=== PATIENT | male | born 1935 | race Caucasian/White ===

== ENCOUNTER 2019-06-19 11:44 | Emergency (ER) | payer MEDICARE, BC ==
[~2019-06-19] VITALS: Ht 167.6 cm; Wt 103.9 kg
[2019-06-19 12:47] LABS: BASOPHILS % (AUTO) 0.6 % (0.0-2.0); EOSINOPHILS # (AUTO) 0.2 K/uL (0.0-0.7); EOSINOPHILS % (AUTO) 3.1 % (0.0-7.0); HEMATOCRIT 33.7 % (36.7-47.1); HEMOGLOBIN 11.4 g/dL (12.5-16.3); LYMPHOCYTES # (AUTO) 1.4 K/uL (20.0-40.0); LYMPHOCYTES % (AUTO) 25.6 % (20.5-51.5); MEAN CORPUSCULAR HEMOGLOBIN 35.1 uug (23.8-33.4); MEAN CORPUSCULAR HGB CONC 34 g/dL (32.5-36.3); MEAN CORPUSCULAR VOLUME 103.4 fL (73.0-96.2); MONOCYTES # (AUTO) 0.5 K/uL (2.0-10.0); NEUTROPHILS # (AUTO) 3.3 K/uL (1.8-8.9); NEUTROPHILS % (AUTO) 61.7 % (38.5-71.5); PLATELET COUNT (AUTO) 136 K/uL (152-348); RED BLOOD CELL COUNT(AUTO) 3.26 MIL/uL (4.06-5.63); WHITE BLOOD COUNT (AUTO) 5.3 K/uL (3.6-10.2)
[2019-06-19 12:52] LABS: ALANINE AMINOTRANSFERASE 18 U/L (16-63); ALKALINE PHOSPHATASE 97 U/L (50-136); ASPARTATE AMINOTRANSFERASE 19 U/L (15-37); BILIRUBIN,DIRECT 0.3 mg/dL (0.0-0.2); BILIRUBIN,TOTAL 0.9 mg/dL (0.2-1.0); CARBON DIOXIDE 28 mmol/L (21-32); CHLORIDE 102 mmol/L (98-107); CREATININE 1.6 mg/dL (0.6-1.3); GLUCOSE 84 mg/dL (74-106); POTASSIUM 4.2 mmol/L (3.5-5.1); TOTAL PROTEIN, SERUM 6.8 g/dL (6.4-8.2); UREA NITROGEN, BLOOD 33 mg/dL (7-18)
[2019-06-19 13:43] LABS: *BILIRUBIN,URIN NEGATIVE (NEGATIVE); *BLOOD, URINE NEGATIVE (NEGATIVE); *CLARITY,URINE CLEAR (CLEAR); *COLOR,URINE YELLOW (YELLOW); *KETONES,URINE NEGATIVE (NEGATIVE); LEUKOCYTE ESTERASE ,URINE NEGATIVE (NEGATIVE); NITRITE, URINE NEGATIVE (NEGATIVE); PH,URINE 5.5 (5.0-8.0); UGLUCOSE NEGATIVE (NEGATIVE)
--- NOTE | 2019-06-19 14:08 | NUR ---
Call placed to Dr. Borja (VASCULAR SURGERY), ERMD speaking with him at this time.
[2019-06-19] MEDS ORDERED: SWABABLE VALVE TRANSFER SET EA MC ONE (14:09)
[2019-06-19] MEDS ORDERED: IOHEXOL 350 100 ML INFUS..BTL ONE (14:09)
[2019-06-19] MEDS ORDERED: IV NORMAL SALINE 250 ML IV ONE (14:09)
[2019-06-19] MEDS ORDERED: IV NORMAL SALINE 500 ML BAG IV ONE (15:15)
--- NOTE | 2019-06-19 15:38 | NUR ---
Patient does not wish to proceed with medical care recommended by Dr. SCHMITZ ). Patient given information related to possible complications, up to and including , which could occur as a result of leaving the hospital at this time. Patient verbalizes understanding of risks involved due to leaving against medical advice. Patient has signed AMA form. Addendum: 06/19/19 at 1543 by JOHNNY PT DID NOT REQUEST ANY PAIN MED.
[2019-06-19 15:42] VITALS: BP 139/72
== END 2019-06-19 15:43 | disposition left against medical advice (07) ==
LOC: ER 11:44
DX: M54.5 Low back pain (principal); I71.4 Abdominal aortic aneurysm, without rupture; R78.5 Finding of other psychotropic drug in blood
CPT/HCPCS: 36415; 74174; 74176; 80048; 80076; 81001; 85025; 87086; 99284; Q9967; A4663; J7040; J7050

== ENCOUNTER 2019-10-14 15:45 | Inpatient (IN) | payer MEDICARE, BC ==
[~2019-10-14] VITALS: Ht 167.6 cm; Wt 115.8 kg
[2019-10-14] MEDS ORDERED: ATOR40TA PO (16:13)
[2019-10-14] MEDS ORDERED: ALLO300T2 PO (16:13)
[2019-10-14] MEDS ORDERED: RAMI10CA69 PO (16:13)
[2019-10-14] MEDS ORDERED: ONDANSETRON 4 MG/2 ML VIAL IV ONE (16:15)
[2019-10-14] MEDS ORDERED: MORPHINE SULFATE 2 MG/1 ML DISP.SYRIN IV ONE ×2 (16:15→18:15)
[2019-10-14 16:36] LABS: BASOPHILS % (AUTO) 0.6 % (0.0-2.0); EOSINOPHILS # (AUTO) 0.1 K/uL (0.0-0.7); EOSINOPHILS % (AUTO) 2.1 % (0.0-7.0); HEMATOCRIT 34.1 % (36.7-47.1); HEMOGLOBIN 11.4 g/dL (12.5-16.3); LYMPHOCYTES # (AUTO) 1.5 K/uL (20.0-40.0); LYMPHOCYTES % (AUTO) 23.8 % (20.5-51.5); MEAN CORPUSCULAR HEMOGLOBIN 33.9 uug (23.8-33.4); MEAN CORPUSCULAR HGB CONC 34 g/dL (32.5-36.3); MEAN CORPUSCULAR VOLUME 101.3 fL (73.0-96.2); MONOCYTES # (AUTO) 0.6 K/uL (2.0-10.0); MONOCYTES % (AUTO) 9.6 % (0.0-11.0); NEUTROPHILS # (AUTO) 3.9 K/uL (1.8-8.9); NEUTROPHILS % (AUTO) 63.9 % (38.5-71.5); PLATELET COUNT (AUTO) 133 K/uL (152-348); RED BLOOD CELL COUNT(AUTO) 3.36 MIL/uL (4.06-5.63); WHITE BLOOD COUNT (AUTO) 6.2 K/uL (3.6-10.2)
[2019-10-14 16:50] LABS: ALANINE AMINOTRANSFERASE 25 U/L (16-63); ALKALINE PHOSPHATASE 102 U/L (50-136); ASPARTATE AMINOTRANSFERASE 14 U/L (15-37); BILIRUBIN,DIRECT 0.2 mg/dL (0.0-0.2); BILIRUBIN,TOTAL 0.6 mg/dL (0.2-1.0); CARBON DIOXIDE 27 mmol/L (21-32); CHLORIDE 104 mmol/L (98-107); CREATININE 1.7 mg/dL (0.6-1.3); GLUCOSE 128 mg/dL (74-106); POTASSIUM 4.3 mmol/L (3.5-5.1); TOTAL PROTEIN, SERUM 6.5 g/dL (6.4-8.2); UREA NITROGEN, BLOOD 37 mg/dL (7-18)
[2019-10-14] MEDS ORDERED: MORPHINE SULFATE 2 MG/1 ML DISP.SYRIN ONE ×2 (16:54→18:15)
[2019-10-14] MEDS ORDERED: ONDANSETRON 4 MG/2 ML VIAL ONE (16:57)
[2019-10-14] MEDS ORDERED: MORPHINE SULFATE 4 MG/1 ML DISP.SYRIN ONE (17:43)
--- NOTE | 2019-10-14 17:44 | NUR ---
EPIC panel call requested, awaiting call back from [facility],
[2019-10-14] MEDS ORDERED: MORPHINE SULFATE 4 MG/1 ML DISP.SYRIN IV ONE (17:45)
--- NOTE | 2019-10-14 17:52 | NUR ---
Lit at bedside for evaluation.
--- NOTE | 2019-10-14 17:53 | NUR ---
Dr. Mon on the line with ERMD
[2019-10-14] MEDS ORDERED: ADJU0.5V IM (18:31)
[2019-10-14] MEDS ORDERED: CELE200C PO ×2 (18:32→18:38)
[2019-10-14] MEDS ORDERED: LIDOCAINE 2% (UROJET) 10 ML JELLY MM ONE ×2 (18:33→18:45)
[2019-10-14] MEDS ORDERED: PHEN-894 PO (18:38)
[2019-10-14] MEDS ORDERED: NITR0.4T48 SL (18:38)
[2019-10-14] MEDS ORDERED: HYDROCO/APAP PO (18:38)
[2019-10-14] MEDS ORDERED: DICL100G16 TP (18:38)
[2019-10-14] MEDS ORDERED: MAGNESIUM HYDROXIDE 30 ML LIQUID UDC PO PRN (19:00)
[2019-10-14] MEDS ORDERED: NITROGLYCERIN 0.4 MG/TAB BOTTLE SL PRN (19:00)
[2019-10-14] MEDS ORDERED: ACETAMINOPHEN 325 MG TABLET PO PRN (19:00)
[2019-10-14] MEDS ORDERED: ONDANSETRON 4 MG/2 ML VIAL IV PRN (19:00)
[2019-10-14] MEDS ORDERED: Z GUARD REMEDY PASTE 57 GM TUBE TOP PRN (19:00)
[2019-10-14] MEDS ORDERED: ZOLPIDEM 5 MG TABLET PO PRN (19:00)
--- NOTE | 2019-10-14 19:05 | NUR ---
ADMITTING NOTES PATIENT RECEIVED INTO CARE LAYING IN BED, RESTING COMFORTABLY. PATIENT HAS NO COMPLAINTS OF PAIN OR DISCOMFORT AT THIS TIME. ALL PERTINENT ASSESSMENTS COMPLETED. IV SITE ON LEFT HAND 20G IS PATENT AND INTACT. PATIENT HAS A HERNÁNDEZ WITH DARK YELLOW URINE DRAINING INTO HERNÁNDEZ BAG. ALL SAFETY AND FALL PRECAUTION MEASURES ARE IN PLACE. CALL LIGHT AND PERSONAL ITEMS ARE WITHIN REACH AT ALL TIMES. WILL CONTINUE TO MONITOR AND ASSESS.
--- NOTE | 2019-10-14 19:08 | NUR ---
Patient transported to [place] in stable condition.
--- NOTE | 2019-10-14 21:00 | NUR ---
Patient complaining of right wrist pain. Contacted Dr. Martinez to request right wrist/arm xray.
[2019-10-14] MEDS: IV D5 1/2 NS 1000 ML 1,000 ML IV PRN (21:15)
[2019-10-14] MEDS: HYDROCODONE/APAP 5-325MG TABLET PO PRN (21:51)
[2019-10-14 22:37] VITALS: BP 132/70
--- NOTE | 2019-10-14 23:55 | NUR ---
Received verbal report from Madeleine at [facility], possible nondisplaced fracture through the waist of the Scaphoid - correlation with CT advised. Relayed results to MD Martinez Will continue to monitor and assess.
[2019-10-15] MEDS: HYDROCODONE/APAP 5-325MG TABLET PO PRN ×2 (02:39→06:26)
[2019-10-15] MEDS: MORPHINE SULFATE 2 MG/1 ML DISP.SYRIN IV PRN ×2 (05:08→09:14)
[2019-10-15 05:34] VITALS: BP 189/85
[2019-10-15] MEDS: PANTOPRAZOLE SODIUM 40 MG TABLET.DR PO SCH (06:25)
[2019-10-15 06:46] LABS: BASOPHILS % (AUTO) 0.3 % (0.0-2.0); EOSINOPHILS # (AUTO) 0.1 K/uL (0.0-0.7); EOSINOPHILS % (AUTO) 1.9 % (0.0-7.0); HEMATOCRIT 29.2 % (36.7-47.1); HEMOGLOBIN 10.1 g/dL (12.5-16.3); LYMPHOCYTES # (AUTO) 0.9 K/uL (20.0-40.0); LYMPHOCYTES % (AUTO) 15.5 % (20.5-51.5); MEAN CORPUSCULAR HEMOGLOBIN 34.5 uug (23.8-33.4); MEAN CORPUSCULAR HGB CONC 35 g/dL (32.5-36.3); MEAN CORPUSCULAR VOLUME 99.9 fL (73.0-96.2); MONOCYTES # (AUTO) 0.7 K/uL (2.0-10.0); MONOCYTES % (AUTO) 11.2 % (0.0-11.0); NEUTROPHILS # (AUTO) 4.3 K/uL (1.8-8.9); NEUTROPHILS % (AUTO) 71.1 % (38.5-71.5); PLATELET COUNT (AUTO) 115 K/uL (152-348); RED BLOOD CELL COUNT(AUTO) 2.92 MIL/uL (4.06-5.63)
[2019-10-15 06:58] LABS: ALANINE AMINOTRANSFERASE 27 U/L (16-63); ALKALINE PHOSPHATASE 91 U/L (50-136); ASPARTATE AMINOTRANSFERASE 17 U/L (15-37); BILIRUBIN,TOTAL 0.9 mg/dL (0.2-1.0); CARBON DIOXIDE 31 mmol/L (21-32); CHLORIDE 102 mmol/L (98-107); CHOLESTEROL 123 mg/dL (<200); CREATININE 1.6 mg/dL (0.6-1.3); GLUCOSE 135 mg/dL (74-106); HDL CHOLESTEROL 41 mg/dL (40-60); MAGNESIUM 1.7 mg/dL (1.8-2.4); PHOSPHOROUS 3.8 mg/dL (2.5-4.9); TOTAL PROTEIN, SERUM 6.1 g/dL (6.4-8.2); TRIGLYCERIDES 87 MG/DL (30-150); UREA NITROGEN, BLOOD 29 mg/dL (7-18)
[2019-10-15 07:05] LABS: THYROID STIMULATING HORMONE 2.401 mIU/mL (0.358-3.740)
--- NOTE | 2019-10-15 07:35 | NUR ---
Received patient in bed, Awake and verbally responsive. No signs of distress noted. NO SOB. No complain of Pain at this time. Cohen Catheter draining with yellow urine, No Hematuria noted. No sediments noted. Call light within easy reach. Kept comfortable. Will continue to monitor.
[2019-10-15] MEDS ORDERED: MAGNESIUM SULFATE/D5W 100 ML IV SCH (08:15)
[2019-10-15] MEDS: ATORVASTATIN 40 MG TABLET PO SCH (08:46)
[2019-10-15] MEDS: ALLOPURINOL 300 MG TABLET PO SCH (08:46)
[2019-10-15] MEDS: RAMIPRIL 5 MG CAPSULE PO SCH (08:47)
[2019-10-15] MEDS: IV D5 1/2 NS 1000 ML 1,000 ML IV PRN (10:38)
[2019-10-15 11:00] VITALS: BP 110/69
[2019-10-15] MEDS: HYDROMORPHONE 1 MG/1 ML DISP.SYRIN IV PRN ×3 (11:11→19:42)
[2019-10-15 11:43] LABS: *BILIRUBIN,URIN NEGATIVE (NEGATIVE); *BLOOD, URINE 2+ (NEGATIVE); *CLARITY,URINE SLIGHTLY CLOUDY (CLEAR); *COLOR,URINE YELLOW (YELLOW); *KETONES,URINE NEGATIVE (NEGATIVE); LEUKOCYTE ESTERASE ,URINE NEGATIVE (NEGATIVE); NITRITE, URINE NEGATIVE (NEGATIVE); UGLUCOSE NEGATIVE (NEGATIVE)
[2019-10-15 12:41] LABS: BACTERIA,URINE FEW /HPF (NONE SEEN); SQUAMOUS EPITHELIAL CELL,UR FEW /HPF (NONE SEEN); WBC,URINE 0-3 /HPF (0-3)
[2019-10-15 15:02] VITALS: BP 111/71
[2019-10-15] MEDS: IV NS 1000 ML 1,000 ML IV PRN (15:11)
--- NOTE | 2019-10-15 16:06 | NUR ---
Patient will have a Intramedullary Nailing of right Hip on 10/16/[address] Nunez, Patient will be NPO After Midnight.
--- NOTE | 2019-10-15 18:23 | NUR ---
Patient in bed, awake and verbally responsive. NO signs of distress noted. No SOB noted. Pain medication given as ordered. Patient will be NPO after midnight for Surgery tomorrow 8AM Intramedullary Nailing of Right Hip by Dr. Nunez. All due medications given as ordered. Kept clean and comfortable. Kept the call light within easy reach. Will endorse to oncoming Nurse.
[2019-10-15 19:37] VITALS: BP 103/67
--- NOTE | 2019-10-15 20:17 | NUR ---
Patient received into care, laying in bed, watching television. Patient is alert/oriented x3 and had a previous complaint of pain at 1945h which was addressed with prescrbed dilauded 1mg and patient is now sleeping, resting comfortably. All safety and fall precaution measures are in place. Call light and personal items are within reach at all times. Will continue to monitor and assess.
[2019-10-16] MEDS: HYDROMORPHONE 1 MG/1 ML DISP.SYRIN IV PRN ×4 (00:47→17:48)
--- NOTE | 2019-10-16 00:48 | NUR ---
Endorsed to nurse from AM shift that patient will be NPO after midnight and IV fluids to be changed from NS to D5 1/2 NS in preparation for surgery at [facility] on 10/16/2019. Nurse reviewed all notes, other reports, and cardex file and could not find order for D5 1/2 NS, but there was note for NPO after midnight. Will continue NS as per current order and keep patient NPO.
[2019-10-16] MEDS: IV NS 1000 ML 1,000 ML IV PRN (03:19)
[2019-10-16 04:19] VITALS: BP 148/74
[2019-10-16 06:34] LABS: CARBON DIOXIDE 26 mmol/L (21-32); CHLORIDE 103 mmol/L (98-107); CREATININE 1.7 mg/dL (0.6-1.3); GLUCOSE 97 mg/dL (74-106); POTASSIUM 4.4 mmol/L (3.5-5.1); UREA NITROGEN, BLOOD 29 mg/dL (7-18)
[2019-10-16] MEDS: PANTOPRAZOLE SODIUM 40 MG TABLET.DR PO SCH (07:00)
[2019-10-16 07:34] LABS: BASOPHILS % (AUTO) 0.4 % (0.0-2.0); EOSINOPHILS # (AUTO) 0.2 K/uL (0.0-0.7); EOSINOPHILS % (AUTO) 2.6 % (0.0-7.0); HEMATOCRIT 28.6 % (36.7-47.1); HEMOGLOBIN 9.9 g/dL (12.5-16.3); LYMPHOCYTES # (AUTO) 1.1 K/uL (20.0-40.0); LYMPHOCYTES % (AUTO) 16.4 % (20.5-51.5); MEAN CORPUSCULAR HEMOGLOBIN 35.3 uug (23.8-33.4); MEAN CORPUSCULAR HGB CONC 35 g/dL (32.5-36.3); MEAN CORPUSCULAR VOLUME 102.3 fL (73.0-96.2); MONOCYTES # (AUTO) 0.9 K/uL (2.0-10.0); MONOCYTES % (AUTO) 12.8 % (0.0-11.0); NEUTROPHILS # (AUTO) 4.7 K/uL (1.8-8.9); NEUTROPHILS % (AUTO) 67.8 % (38.5-71.5); WHITE BLOOD COUNT (AUTO) 6.9 K/uL (3.6-10.2)
[2019-10-16 07:46] LABS: PLATELET COUNT (AUTO) 98 K/uL (152-348)
--- NOTE | 2019-10-16 07:50 | NUR ---
Received patient in Bed, awake and verbally responsive. No signs of distress noted. No SOB. No signs of Pain at this time. Right Wrist Velcro Splint in placed. Seen and examined by Dr. Daily, with New Order of Metoprolol 25mg and D/C IVF. Patient is aware that he will have Surgery at [facility]. All needs attended. Kept the call light within easy reach. Will continue to monitor.
[2019-10-16] MEDS: ALLOPURINOL 300 MG TABLET PO SCH (08:21)
[2019-10-16] MEDS: RAMIPRIL 5 MG CAPSULE PO SCH (08:21)
[2019-10-16] MEDS: ATORVASTATIN 40 MG TABLET PO SCH (08:21)
--- NOTE | 2019-10-16 08:30 | NUR ---
Patient noted with Afib and multiple PVC, Dr. Moyer made aware with New order EKG.
[2019-10-16] MEDS ORDERED: METOPROLOL TARTRATE 25 MG TABLET PO SCH (09:00)
[2019-10-16 09:33] LABS: BAND % (MANUAL) 1 % (0-10); EOSINOPHILS % (MANUAL) 3 % (0-8); LYMPHOCYTES % (MANUAL) 19 % (20-40); MONOCYTES % (MANUAL) 13 % (2-10); NEUTROPHILS % (MANUAL) 64 % (42-75)
[2019-10-16 11:08] VITALS: BP 107/52
[2019-10-16 15:15] VITALS: BP 96/43
[2019-10-16] MEDS ORDERED: METO25TA6 PO (15:52)
--- NOTE | 2019-10-16 16:30 | NUR ---
Patient got a bed at [facility] under Dr. Boyd and Dr. Yanez for Ortho Surgery. Called [facility] and Spoke with Abigail MELCHOR and gave report, Patient will be Admitted at Room 4424. Transportation will switchboard operator supervisor the patient around 7:30PM. Family made aware.
--- NOTE | 2019-10-16 18:45 | NUR ---
Patient in bed, awake and verbally responsive. No signs of distress noted. No SOB. Pain medication given as ordered. Dilaudid 1mg given x2 on my Shift for pain on Right Wrist. Patient will be transfer to [facility] under Dr. Boyd/Dr. Yanez, Spoke with Abigail and gave report, Patient will keep the IV site on Left AC G22. Transportation will black pickler the patient at 7:30PM. Will endorse to Oncoming Nurse.
--- NOTE | 2019-10-16 19:30 | NUR ---
Received patient awake and alert in bed, A/Ox4. No distress noted, complains of some pain, with dilaudid given an hour and half ago, says it is working, no SOB. Patient says he is waiting for ambulance. Heplock on the left AC intact and patent. Cohen catheter intact and draining well. Safety measures given. Bed is low and locked, call light within reach. Will continue to monitor.
[2019-10-16 19:57] VITALS: BP 131/58
--- NOTE | 2019-10-16 20:16 | NUR ---
Patient is being transferred to [facility]. Report given to EMT, belongings list and discharge papers given. Patient left in stable condition with Heplock on the left AC, Cohen catheter intact and emptied out 300cc.
== END 2019-10-16 20:18 | disposition short-term general hospital (02) | DRG 535 ==
LOC: ER 15:47 → MEDSURG3 18:34 → TELE3 10-16 07:39
PROVIDERS: ADMIT Nurse Practitioner Acute Care; ATTEND Nurse Practitioner Acute Care
DX: S72.141A Displaced intertrochanteric fracture of right femur, initial encounter for closed fracture (principal); N17.0 Acute kidney failure with tubular necrosis; S62.001A Unspecified fracture of navicular [scaphoid] bone of right wrist, initial encounter for closed fracture; W01.0XXA Fall on same level from slipping, tripping and stumbling without subsequent striking against object, initial encounter; Y93.01 Activity, walking, marching and hiking; Y92.89 Other specified places as the place of occurrence of the external cause; D63.8 Anemia in other chronic diseases classified elsewhere; D69.6 Thrombocytopenia, unspecified; I25.118 Atherosclerotic heart disease of native coronary artery with other forms of angina pectoris; N18.9 Chronic kidney disease, unspecified; Z85.46 Personal history of malignant neoplasm of prostate; Z87.442 Personal history of urinary calculi; I12.9 Hypertensive chronic kidney disease with stage 1 through stage 4 chronic kidney disease, or unspecified chronic kidney disease; M10.9 Gout, unspecified; I70.0 Atherosclerosis of aorta; I08.2 Rheumatic disorders of both aortic and tricuspid valves; E78.5 Hyperlipidemia, unspecified; E66.9 Obesity, unspecified; I49.3 Ventricular premature depolarization
CPT/HCPCS: 36415; 70030-TC; 71045; 73090; 73110; 73502; 76770; 83735; 84100; 84443; 85025; 85730; 93005; 93307; A4663; G0378; J1170; J2270; J2405; J3475; J3490; J7030

== ENCOUNTER 2019-10-21 19:51 | Inpatient (IN) | payer MEDICARE, BC ==
[~2019-10-21] VITALS: Ht 172.7 cm; Wt 113.4 kg
[~2019-10-21 19:51] MED LIST: ADJU0.5V IM; ALLO300T2 PO; ATOR40TA PO; CELE200C PO; DICL100G16 TP; HYDROCO/APAP PO; METO25TA6 PO; NITR0.4T48 SL; PHEN-894 PO; RAMI10CA69 PO
[2019-10-21] MEDS ORDERED: Z GUARD REMEDY PASTE 57 GM TUBE TOP PRN (20:15)
[2019-10-21] MEDS ORDERED: NITROGLYCERIN 0.4 MG/TAB BOTTLE SL PRN (23:00)
[2019-10-21] MEDS ORDERED: BISACODYL 10 MG SUPP.RECT RC PRN (23:00)
[2019-10-21] MEDS ORDERED: HYDROCODONE/APAP 5-325MG TABLET PO PRN (23:00)
[2019-10-22 00:23] VITALS: BP 131/54
[2019-10-22] MEDS ORDERED: HYDROCODONE/APAP 10-325 MG TABLET PO PRN ×2 (00:30→11:30)
[2019-10-22] MEDS ORDERED: HYDROCODONE/APAP 5-325MG TABLET PO PRN (01:00)
[2019-10-22] MEDS: HYDROMORPHONE HCL 2 MG TABLET PO PRN ×3 (01:10→17:45)
--- NOTE | 2019-10-22 01:25 | NUR ---
Admitted a 84 yr old male from [facility] via [facility] with admitting diagnosis of right hip fracture and right wrist fracture. AAOx3-4 VSS Needs attended. Right hip dressing intact with stella. Patient S/P right hip IM nailing. RUE with short arm cast intact, good pulses, no edema, able to move fingers. Voiding in urinal. Skin assessment done with some bruising from the hip and knee. Dr Meyers aware of patient's admission. Patient complained of right hip pain, [place] given but says it dont help him. Called Dr Trotter (palaeontologist) ordered Dilaudid 4mg po q6hrs PRN severe pain, given as needed. Will monitor for relief. Fall precautions maintained. Siderails up for safety, Kept comfortable.
[2019-10-22 05:35] VITALS: BP 134/73
--- NOTE | 2019-10-22 06:47 | NUR ---
slept well most of the shift. needs attended. VSS. kept comfortable. voiding freely. Tolerated po meds well. No acute distress noted. Fall precautions maintained. Siderails up for safety.
[2019-10-22 08:23] VITALS: BP 146/74
[2019-10-22] MEDS: ALLOPURINOL 300 MG TABLET PO SCH (08:35)
[2019-10-22] MEDS: DOCUSATE SODIUM 100 MG CAPSULE PO SCH ×2 (08:36→16:41)
[2019-10-22] MEDS: RAMIPRIL 5 MG CAPSULE PO SCH (08:36)
[2019-10-22] MEDS: MIRALAX 17 GM POWD.PACK PO SCH (08:36)
[2019-10-22] MEDS: LIDOCAINE 5% PATCH TD SCH (08:40)
[2019-10-22] MEDS: BACLOFEN 10 MG TABLET PO SCH ×3 (11:11→16:41)
[2019-10-22] MEDS: ENOXAPARIN SODIUM 40 MG/0.4 ML DISP.SYRIN SQ SCH (13:16)
[2019-10-22 15:27] VITALS: BP 155/54
[2019-10-22] MEDS ORDERED: NITROGLYCERIN 0.4 MG/TAB BOTTLE SL PRN (17:15)
--- NOTE | 2019-10-22 18:59 | NUR ---
Pt received this morning, assessed, AAOx3, no acute distress or SOB. Pain 8/10 reported before and after therapy. Dilaudid 4mg administered per PRN orders for pain relief, effective. Pt able to make needs known. Pt compliant with routine medication administration and therapy evaluations. Pt assisted to use and hold urinal for voiding, clear, yellow urine. New order for Baclofen 5mg PO TID received and administered. Pt asleep for second dose, and refused third due to feeling too "sleepy" at the time. Pt c/o muscle spasms, new order received from Dr. Meyers for Baclofen 5mg PO TIDPRN. Ice pack applied to surgical site for temporary relief. Bed in locked and lowest position with side rails up x2, bed alarm on. All safety needs met. Call light and personal items placed within reach. Will continue to monitor and endorse to oncoming shift lab technician.
[2019-10-22] MEDS: BACLOFEN 10 MG TABLET PO PRN (19:22)
[2019-10-22 20:00] VITALS: BP 135/74
[2019-10-22] MEDS: ATORVASTATIN 40 MG TABLET PO SCH (22:09)
[2019-10-22] MEDS: METOPROLOL TARTRATE 25 MG TABLET PO SCH (22:10)
[2019-10-23 05:43] VITALS: BP 152/58
[2019-10-23 08:13] VITALS: BP 144/49
[2019-10-23] MEDS: ENOXAPARIN SODIUM 40 MG/0.4 ML DISP.SYRIN SQ SCH (08:37)
[2019-10-23] MEDS: DOCUSATE SODIUM 100 MG CAPSULE PO SCH ×2 (08:39→17:28)
[2019-10-23] MEDS: RAMIPRIL 5 MG CAPSULE PO SCH (08:41)
[2019-10-23] MEDS: CELECOXIB 200 MG CAPSULE PO PRN (08:41)
[2019-10-23] MEDS: METOPROLOL TARTRATE 25 MG TABLET PO SCH ×2 (08:42→20:34)
[2019-10-23] MEDS: BACLOFEN 10 MG TABLET PO PRN ×2 (08:42→20:47)
[2019-10-23] MEDS: ALLOPURINOL 300 MG TABLET PO SCH (08:42)
[2019-10-23] MEDS: MIRALAX 17 GM POWD.PACK PO SCH (08:42)
[2019-10-23] MEDS: LIDOCAINE 5% PATCH TD SCH (08:43)
[2019-10-23] MEDS ORDERED: ALLOPURINOL 300 MG TABLET PO SCH (09:00)
[2019-10-23] MEDS ORDERED: ATORVASTATIN 40 MG TABLET PO SCH (09:00)
[2019-10-23] MEDS: HYDROMORPHONE HCL 2 MG TABLET PO PRN ×2 (11:10→18:27)
--- NOTE | 2019-10-23 13:22 | NUR ---
NOTED WITH SEROSANGUINEOUS MODERATE AMOUNT DRAINAGE ON THE DRESSING, DR CARDENAS MADE AWARE. PER NUÑEZ FOLLOW UP WITH SURGEON, TRIED CALLING TO MAKE APT, WILL TRY AGAIN. DA ARE INTACT, DRESSING CHANGED, DAUGHTER IS INVOLVED AND SAID SHE IS TRYING TO GET FOLLOW UP WITH DR HARLEY. NO ODOR NOTED AT THIS TIME, NO INCREASED ERYTHEMA NOTED, MOST OF THE INCISION SITE IS WELL APPROXIMATED, EXCEPT ONE SMALL SPOT. DA ARE INTACT, NO INCREASED BODY TEMP NOTED AT THIS TIME, CONTINUE TO MONITOR
--- NOTE | 2019-10-23 13:46 | NUR ---
DAUGHTER CALLED THE NUMBER TO DR HARLEY OFFICE LEFT MESSAGE FOR FRANK AT NUMBER [phone] EXT [phone]
--- NOTE | 2019-10-23 13:53 | NUR ---
LEFT MESSAGE TO DR GARCIA OFFICE AT NUMBER [id number] FOR APT FOR FOLLOW UP FOR THE INCISION SITE
--- NOTE | 2019-10-23 14:25 | NUR ---
INCISION SITE IS EXAMINED BY DR SALEH, PER DR SALEH NO SIGNS AND SYMPTOMS OF INFECTION, IT LOOKS FINE, AND WELL APPROXIMATED. DAUGHTER RUIZ MADE AWARE
--- NOTE | 2019-10-23 15:21 | NUR ---
INTERDISCIPLINARY TEAM CONFERENCE
--- NOTE | 2019-10-23 15:45 | NUR ---
Follow up with dr Saxena othorpedic surgeon is on nov 02,at 1320, number to reach MD patient observation assistant is Kadi [phone] ext [phone] graham [phone] ext [phone]
[2019-10-23 16:00] VITALS: BP 147/82
--- NOTE | 2019-10-23 18:14 | NUR ---
OFFERED PATIENT PAIN MEDICATION, PATIENT REFUSED STATED HE DOES NOT WANT TO TAKE IT NOW, HE WANTS TO TAKE IT LATER, RETURNED WITH THE WITNESS OF CHARGE NURSE ON DUTY.
--- NOTE | 2019-10-23 18:30 | NUR ---
PATIENT ASKED FOR PAIN MEDICATION , ADMINISTERED
--- NOTE | 2019-10-23 19:40 | NUR ---
Received patient in bed. AAO x1-2, very confused. Not in acute distress or SOB. On room air. Able to make needs known. No complain of pain at this time. IV line on the left FA G22, no sign of inflammation. Patient has cast on the right FA and wrist. Physical assessment done.2+ bilateral leg edema. Fall prevention observed. Safety measures maintained. Bed in low and lock position, alarm on, side rails up x2 for safety. Call light and frequently used items within reach. Continue to monitor.
[2019-10-23 19:42] VITALS: BP 120/66
[2019-10-23] MEDS: ATORVASTATIN 40 MG TABLET PO SCH (20:34)
--- NOTE | 2019-10-23 21:15 | NUR ---
Metoprolol 25 mg was hold because of the low heart rate. BP:120/66, HR: 54. Continue to monitor.
[2019-10-24 05:27] VITALS: BP 155/61
--- NOTE | 2019-10-24 05:39 | NUR ---
Noticed the dark orange color of the urine, no other symptoms. Collected urine sample, sent to the lab under Dr. Meyers order. Continue to monitor.
[2019-10-24] MEDS: HYDROMORPHONE HCL 2 MG TABLET PO PRN ×2 (06:11→15:58)
[2019-10-24 07:42] VITALS: BP 152/59
[2019-10-24 07:42] LABS: BASOPHILS % (AUTO) 0.4 % (0.0-2.0); EOSINOPHILS # (AUTO) 0.1 K/uL (0.0-0.7); EOSINOPHILS % (AUTO) 2.2 % (0.0-7.0); HEMATOCRIT 24.1 % (36.7-47.1); HEMOGLOBIN 8.4 g/dL (12.5-16.3); LYMPHOCYTES # (AUTO) 0.8 K/uL (20.0-40.0); LYMPHOCYTES % (AUTO) 11.6 % (20.5-51.5); MEAN CORPUSCULAR HEMOGLOBIN 33.9 uug (23.8-33.4); MEAN CORPUSCULAR HGB CONC 35 g/dL (32.5-36.3); MEAN CORPUSCULAR VOLUME 97.7 fL (73.0-96.2); MONOCYTES # (AUTO) 0.7 K/uL (2.0-10.0); MONOCYTES % (AUTO) 10.3 % (0.0-11.0); NEUTROPHILS % (AUTO) 75.5 % (38.5-71.5); PLATELET COUNT (AUTO) 168 K/uL (152-348); WHITE BLOOD COUNT (AUTO) 6.6 K/uL (3.6-10.2)
[2019-10-24 07:54] LABS: RED BLOOD CELL COUNT(AUTO) 2.47 MIL/uL (4.06-5.63)
[2019-10-24 08:10] LABS: CARBON DIOXIDE 26 mmol/L (21-32); CHLORIDE 104 mmol/L (98-107); GLUCOSE 98 mg/dL (74-106); MAGNESIUM 1.9 mg/dL (1.8-2.4); PHOSPHOROUS 3.2 mg/dL (2.5-4.9); POTASSIUM 3.7 mmol/L (3.5-5.1); UREA NITROGEN, BLOOD 27 mg/dL (7-18)
[2019-10-24 08:16] LABS: *CLARITY,URINE CLEAR (CLEAR); *COLOR,URINE DARK YELLOW (YELLOW)
[2019-10-24 08:17] LABS: *BLOOD, URINE NEGATIVE (NEGATIVE); UGLUCOSE NEGATIVE (NEGATIVE)
[2019-10-24 08:18] LABS: *BILIRUBIN,URIN NEGATIVE (NEGATIVE); *KETONES,URINE NEGATIVE (NEGATIVE); LEUKOCYTE ESTERASE ,URINE NEGATIVE (NEGATIVE); NITRITE, URINE NEGATIVE (NEGATIVE)
[2019-10-24 08:44] LABS: CREATININE 1.2 mg/dL (0.6-1.3)
[2019-10-24] MEDS: DOCUSATE SODIUM 100 MG CAPSULE PO SCH ×2 (08:46→17:00)
[2019-10-24] MEDS: MIRALAX 17 GM POWD.PACK PO SCH (08:46)
[2019-10-24] MEDS: ALLOPURINOL 300 MG TABLET PO SCH (08:47)
[2019-10-24] MEDS: CELECOXIB 200 MG CAPSULE PO PRN (08:48)
[2019-10-24] MEDS: RAMIPRIL 5 MG CAPSULE PO SCH (08:48)
[2019-10-24] MEDS: BACLOFEN 10 MG TABLET PO PRN (08:49)
[2019-10-24] MEDS: ENOXAPARIN SODIUM 40 MG/0.4 ML DISP.SYRIN SQ SCH (08:56)
[2019-10-24] MEDS: METOPROLOL TARTRATE 25 MG TABLET PO SCH ×2 (09:07→20:17)
[2019-10-24] MEDS: LIDOCAINE 5% PATCH TD SCH (09:09)
[2019-10-24 09:26] LABS: BACTERIA,URINE FEW /HPF (NONE SEEN); RBC,URINE 0-3 /HPF (0-3); SQUAMOUS EPITHELIAL CELL,UR NONE SEEN /HPF (NONE SEEN); WBC,URINE 0-3 /HPF (0-3)
[2019-10-24 15:00] VITALS: BP 125/50
--- NOTE | 2019-10-24 16:29 | NUR ---
INDIVIDUALIZE OVERALL PLAN OF CARE
--- NOTE | 2019-10-24 17:53 | NUR ---
Pt received this morning, assessed, AAOx2, slightly confused, able to be reoriented. Pt complaint with routine medication administration. Pt c/o lack of sleep, and pain 05/09, PRN Dilaudid administered per MD orders. Intermittently sleeping throughout the day. Arm tremors or muscle spasms observed, Pt spilled water over self, twice. PRN Baclofen administered as ordered. 22gage IV in left arm flushed, intact, patent. No s/s of infection. Middle Sx incision dressing replaced due to drainage, surrounding bruise noted. Right wrist and forearm cast intact. BL edema present to LE. Ice pack applied to Sx due to c/o continued discomfort and repositioned. Family visiting at bedside. Bed in locked and lowest position with alarm on and side rails upx2. Pt reports pain relief at this time. Will continue to monitor for safety.
--- NOTE | 2019-10-24 19:30 | NUR ---
Received patient in bed. AAO x2. Not in acute distress or SOB. On room air. Able to make needs known. No complain of pain at this time. IV line on the left FA G22, no sign of inflammation. Patient has cast on the right FA and wrist. Physical assessment done.2+ bilateral leg edema. Fall prevention observed. Safety measures maintained. Bed in low and lock position, alarm on, side rails up x2 for safety. Call light and frequently used items within reach. Continue to monitor.
--- NOTE | 2019-10-24 20:10 | NUR ---
Patient has low HR: 48-49, BP:132/41. No other symptom presented. Charge nurse was informed. Continue to monitor.
[2019-10-24] MEDS: ATORVASTATIN 40 MG TABLET PO SCH (20:17)
[2019-10-24 20:54] VITALS: BP 132/41
--- NOTE | 2019-10-24 21:00 | NUR ---
Rechecked the HR: 54-58. Continue to monitor.
--- NOTE | 2019-10-24 21:10 | NUR ---
Metoprolol 25 mg was hold because of the low heart rate. BP:132/41, HR: 49. Continue to monitor.
--- NOTE | 2019-10-24 22:00 | NUR ---
Rechecked the HR: 49-55, mostly 51. Continue to monitor.
--- NOTE | 2019-10-25 | NUR ---
Rechecked HR: 50-55. Continue to monitor.
[2019-10-25 04:37] VITALS: BP 160/58
[2019-10-25] MEDS: HYDROMORPHONE HCL 2 MG TABLET PO PRN (06:00)
[2019-10-25 08:00] VITALS: BP 144/60
[2019-10-25] MEDS: MIRALAX 17 GM POWD.PACK PO SCH (09:00)
[2019-10-25] MEDS: METOPROLOL TARTRATE 25 MG TABLET PO SCH ×2 (09:00→20:04)
[2019-10-25] MEDS: DOCUSATE SODIUM 100 MG CAPSULE PO SCH ×2 (09:00→17:00)
[2019-10-25] MEDS: LIDOCAINE 5% PATCH TD SCH (09:36)
[2019-10-25] MEDS: CELECOXIB 200 MG CAPSULE PO PRN (09:49)
[2019-10-25] MEDS: ACETAMINOPHEN 325 MG TABLET PO PRN ×3 (09:49→20:04)
[2019-10-25] MEDS: ALLOPURINOL 300 MG TABLET PO SCH (09:50)
[2019-10-25] MEDS: RAMIPRIL 5 MG CAPSULE PO SCH (09:52)
[2019-10-25] MEDS: ENOXAPARIN SODIUM 40 MG/0.4 ML DISP.SYRIN SQ SCH (10:14)
[2019-10-25 16:40] VITALS: BP 138/68
--- NOTE | 2019-10-25 18:33 | NUR ---
Pt assessed, AAOx3, with episodes of confusion. Pt reports c/o pain following PRN Dilaudid administration on car shifter. Pt repositioned, ice applied, Tylenol, and Pt teaching provided. Plan for today regarding pain management discussed. Proven effective. No acute distress, able to make needs known. Pt compliant with medication administration, Colace held r/t loose stools BMx2, Metroproplol held due to Hr 56. , brother visited and spoke to daughter on the phone, family agrees confusion is due to meds and to utilize alternative measures of pain relief prior to administering PRNs. Rest day from therapy. Bed in locked, lowest position with side rails up x2, with bed alarm on. BLLE elevated while in bed. Sx incision dressings changed, slight drainage noted. All comfort and safety measures implemented. Call light and personal items placed within reach. Will continue to monitor.
--- NOTE | 2019-10-25 19:35 | NUR ---
Received patient in bed. AAO x3. Not in acute distress or SOB. On room air. Able to make needs known. No complain of pain at this time. IV line on the left FA G22, no sign of inflammation. Patient has cast on the right FA and wrist. Physical assessment done.2+ bilateral leg edema. Fall prevention observed. Safety measures maintained. Bed in low and lock position, alarm on, side rails up x2 for safety. Call light and frequently used items within reach. Continue to monitor.
[2019-10-25 19:50] VITALS: BP 103/44
[2019-10-25] MEDS: ATORVASTATIN 40 MG TABLET PO SCH (20:04)
--- NOTE | 2019-10-25 21:19 | NUR ---
Metoprolol 25 mg was hold because of the low BP. BP:103/44, HR: 74. Continue to monitor.
[2019-10-26] MEDS: ACETAMINOPHEN/CODEINE 300-30 MG TABLET PO PRN ×2 (00:15→23:31)
[2019-10-26 04:50] VITALS: BP 148/61
[2019-10-26 07:41] VITALS: BP 155/68
[2019-10-26] MEDS: DOCUSATE SODIUM 100 MG CAPSULE PO SCH ×2 (09:00→17:00)
[2019-10-26] MEDS: MIRALAX 17 GM POWD.PACK PO SCH (09:00)
[2019-10-26] MEDS: METOPROLOL TARTRATE 25 MG TABLET PO SCH ×2 (09:00→21:00)
[2019-10-26] MEDS: ACETAMINOPHEN 325 MG TABLET PO PRN ×2 (10:02→14:11)
[2019-10-26] MEDS: ALLOPURINOL 300 MG TABLET PO SCH (10:03)
[2019-10-26] MEDS: CELECOXIB 200 MG CAPSULE PO PRN (10:03)
[2019-10-26] MEDS: RAMIPRIL 5 MG CAPSULE PO SCH (10:04)
[2019-10-26] MEDS: LIDOCAINE 5% PATCH TD SCH (10:04)
[2019-10-26] MEDS: ENOXAPARIN SODIUM 40 MG/0.4 ML DISP.SYRIN SQ SCH (10:13)
[2019-10-26 14:47] VITALS: BP 131/62
--- NOTE | 2019-10-26 16:15 | NUR ---
Pt received resting in bed, assessed, AAOx4, able to make needs known. No acute distress or SOB. Pain reported, Tylenol requested per PRN pain management. Reported effective. Sx incision site well approximated with no s/s of infection. VSS, Metroprolol, Colace, and Miralax held. Loose BMx2. Cast on right wrist present reminded of NWB status. Pt repositioned for comfort, and ice packs applied. All comfort and safety needs attended to throughout this shift. Pt compliant with routine medication administration and therapies as offered. Call light and personal items all placed within reach. Will continue to monitor.
[2019-10-26 20:28] VITALS: BP 136/55
--- NOTE | 2019-10-26 21:23 | NUR ---
Metoprolol 25 mg was hold because of the low heart rate. BP:136/55, HR: 57. Continue to monitor.
[2019-10-26] MEDS: ATORVASTATIN 40 MG TABLET PO SCH (22:00)
[2019-10-27] MEDS: ACETAMINOPHEN 325 MG TABLET PO PRN ×4 (02:22→21:16)
[2019-10-27 04:45] VITALS: BP 160/70
[2019-10-27 06:30] VITALS: BP 146/88
--- NOTE | 2019-10-27 06:44 | NUR ---
End of the shift report: Patient was stable during the shift and had a good sleep. No signs of acute distress or SOB. Complained of pain in his right hip. Tylenol 3 administered and effective. Pain assessed and reassessed after pain medication. All due medication were given as ordered and well tolerated. All needs attended promptly. Dressing changed, less serosanguineous discharge compared to yesterday, stella in place, no sign of infection. IV Line removed. Physical assessment done. Fall prevention observed. Safety measures maintained. Bed in low and lock position, alarm on, side rails up x2 for safety. Call light and frequently used items within reach. Continue to monitor and will endorse to the oncoming nurse accordingly.
[2019-10-27 07:43] VITALS: BP 147/49
[2019-10-27] MEDS: ALLOPURINOL 300 MG TABLET PO SCH (08:40)
[2019-10-27] MEDS: CELECOXIB 200 MG CAPSULE PO PRN (08:53)
[2019-10-27] MEDS: LIDOCAINE 5% PATCH TD SCH (08:54)
[2019-10-27] MEDS: RAMIPRIL 5 MG CAPSULE PO SCH (08:54)
[2019-10-27] MEDS: MIRALAX 17 GM POWD.PACK PO SCH (09:00)
[2019-10-27] MEDS: DOCUSATE SODIUM 100 MG CAPSULE PO SCH ×2 (09:00→16:57)
[2019-10-27] MEDS: METOPROLOL TARTRATE 25 MG TABLET PO SCH (09:00)
[2019-10-27] MEDS: ENOXAPARIN SODIUM 40 MG/0.4 ML DISP.SYRIN SQ SCH (09:02)
[2019-10-27 15:29] VITALS: BP 150/66
--- NOTE | 2019-10-27 15:43 | NUR ---
Pt received this morning, assessed, AAOx4, no acute distress or SOB noted. Pt able to make needs known. Pain relief effective from Tylenol administered per MD PRN orders. Pt complaint with routine medication administration and cooperative with therapies as offered. Sx incision of right hip well approximated with stella in place, dressing changed as ordered, less serosanguineous drainage noted from yesterday's assessment, no s/s of infection. stool softeners and 2nd BP med, Metroprolol, held due to loose stool and decreased HR. VSS. Ice applied. Pt repositioned for comfort. Bed in locked and lowest position with side rails up x2, bed alarm on. All comfort and safety measures implemented. Call light and personal belongings placed within reach. Will continue to monitor.
[2019-10-27] MEDS: ATORVASTATIN 40 MG TABLET PO SCH (21:15)
[2019-10-27 21:26] VITALS: BP 125/65
--- NOTE | 2019-10-28 04:06 | NUR ---
awake alert and oriented x3-4 attended to needs. VSS Kept comfortable. Right arm cast intact, good circulation, capillary refill. Able to move fingers. Right hip incision with stella intact.Noted with bruising along the right hip, also swollen. Dressing change to hip wound. Denies any pain nor any discomfort. Incontinent of bowel and bladder. Had a large BM this shift. Kept comfortable. Siderails up for safety.Fall precautions maintained. Siderails up for safety. Call torres within reach.
[2019-10-28 05:00] VITALS: BP 137/69
[2019-10-28 08:00] VITALS: BP 140/66
[2019-10-28] MEDS: CELECOXIB 200 MG CAPSULE PO PRN (08:58)
[2019-10-28] MEDS: ACETAMINOPHEN 325 MG TABLET PO PRN ×3 (08:58→20:53)
[2019-10-28] MEDS: ALLOPURINOL 300 MG TABLET PO SCH (08:58)
[2019-10-28] MEDS: RAMIPRIL 5 MG CAPSULE PO SCH (09:00)
[2019-10-28] MEDS: MIRALAX 17 GM POWD.PACK PO SCH (09:00)
[2019-10-28] MEDS: DOCUSATE SODIUM 100 MG CAPSULE PO SCH ×2 (09:00→17:00)
[2019-10-28] MEDS: LIDOCAINE 5% PATCH TD SCH (09:08)
[2019-10-28] MEDS: ENOXAPARIN SODIUM 40 MG/0.4 ML DISP.SYRIN SQ SCH (09:08)
--- NOTE | 2019-10-28 10:34 | NUR ---
dressing changed to the incision site, noted with only small amount of clear yellow drainage to the middle and hip site incision, no increased erythema noted, no swelling noted, no odor noted, incision site on knee is clean and dry, no drainage noted continue to monitor.patient does not have loose stool or diarrhea until now, will continue to monitor
[2019-10-28 17:11] VITALS: BP 146/87
--- NOTE | 2019-10-28 18:25 | NUR ---
Pt received this morning, AAOx4, able to make needs known. Tylenol administered PRN for pain management, proven effective. Pt reports episodes of diarrhea. New order for stool sample collection. Pt assisted to toilet, sample collected, taken to lab. Pt returned safely to bed. Bed in locked and lowest position with side rails up x2, bed alarm on. Pt teaching provided on medications. Pt seen by , new order for Imodium PRN, to be administered following third stool sample collection. VSS. No s/s of infection. Pt repositioned for comfort and ice packs applied to right hip Sx site. Call light and personal items placed within reach. Will continue to monitor and endorse to oncoming shift production associate.
--- NOTE | 2019-10-28 19:30 | NUR ---
RECEIVED PT AWAKE, ALERT AND ORIENTEDX4. PT IN NO ACUTE DISTRESS. SAFETY AND COMFORT PROVIDED. WILL CONTINUE TO MONITOR.
[2019-10-28 19:37] VITALS: BP 124/57
[2019-10-28] MEDS: ATORVASTATIN 40 MG TABLET PO SCH (20:53)
[2019-10-29] MEDS: ACETAMINOPHEN/CODEINE 300-30 MG TABLET PO PRN (01:08)
[2019-10-29 05:10] VITALS: BP 144/63
[2019-10-29] MEDS: ACETAMINOPHEN 325 MG TABLET PO PRN ×4 (06:02→22:45)
--- NOTE | 2019-10-29 06:21 | NUR ---
PT IN NO ACUTE DISTRESS. DRESSING INTACT. . PT TOLERATED IT WELL. PRESCRIBED MEDICATION GIVEN AND PT TOLERATED IT WELL. TYLENOL#3 GIVEN AT 0108H FOR PAIN. TYLENOL GIVEN AT 2053H AND 06H PT TOLERATED IT WELL. SAFETY AND COMFORT PROVIDED. ALL NEEDS ARE MET. ENDORSE TO ONCOMING DAYSHIFT NURSE.
--- NOTE | 2019-10-29 06:24 | NUR ---
PT IN NO ACUTE DISTRESS. DRESSING INTACT. . PT TOLERATED IT WELL. PRESCRIBED MEDICATION GIVEN AND PT TOLERATED IT WELL. TYLENOL#3 GIVEN AT 0108H FOR PAIN. TYLENOL GIVEN AT 2053H AND 06H. PT TOLERATED IT WELL. SAFETY AND COMFORT PROVIDED. ALL NEEDS ARE MET. ENDORSE TO ONCOMING DAYSHIFT NURSE.
[2019-10-29 08:02] VITALS: BP 148/64
[2019-10-29] MEDS: DOCUSATE SODIUM 100 MG CAPSULE PO SCH (09:00)
[2019-10-29] MEDS: MIRALAX 17 GM POWD.PACK PO SCH (09:00)
[2019-10-29] MEDS: ALLOPURINOL 300 MG TABLET PO SCH (09:14)
[2019-10-29] MEDS: RAMIPRIL 5 MG CAPSULE PO SCH (09:15)
[2019-10-29] MEDS: LIDOCAINE 5% PATCH TD SCH (09:16)
[2019-10-29] MEDS: ENOXAPARIN SODIUM 40 MG/0.4 ML DISP.SYRIN SQ SCH (09:29)
--- NOTE | 2019-10-29 15:29 | NUR ---
Pt received, assessed, no acute distress. Pt complaint with routine medication administration and therapies as offered. PRN Tylenol administered before and after therapy per PRN orders, reported effective for pain management. No BM since stool sample sent yesterday. VSS. No s/s of infection. Pt seen by MD, new orders received, D/C stool softeners, new right hip Xray ordered for Saturday, CD to bring to Saturday appointment, transportation arranged by Collection AdministratorEstuardo for both Saturday and Saturday appointments. All comfort and safety measures implemented. Ice packs and repositioning used for comfort. Call light and personal belongings placed within reach. Will continue to monitor.
[2019-10-29] MEDS ORDERED: LOPERAMIDE HCL 1 MG/5 ML UDC PO PRN (18:15)
--- NOTE | 2019-10-29 19:30 | NUR ---
RECEIVED PT AWAKE, ALERT AND ORIENTEDX4. PT IN NO ACUTE DISTRESS. DRESSING INTACT. SAFETY AND COMFORT PROVIDED. WILL CONTINUE TO MONITOR.
[2019-10-29 19:51] VITALS: BP 133/58
[2019-10-29] MEDS: ATORVASTATIN 40 MG TABLET PO SCH (20:01)
[2019-10-30] MEDS: ACETAMINOPHEN/CODEINE 300-30 MG TABLET PO PRN ×2 (00:03→17:53)
[2019-10-30 04:38] VITALS: BP 147/65
--- NOTE | 2019-10-30 06:20 | NUR ---
PT IN NO ACUTE DISTRESS. PRESCRIBED MEDICATION GIVEN AND PT TOLERATED IT WELL. TYLENOL # 3 GIVEN FOR PAIN. PT TOLERATED IT WELL. SAFETY AND COMFORT PROVIDED. ALL NEEDS ARE MET. WILL ENDORSE TO ONCOMING NURSE FOR CONTINUITY OF CARE.
[2019-10-30 08:03] VITALS: BP 136/70
[2019-10-30] MEDS: RAMIPRIL 5 MG CAPSULE PO SCH (08:09)
[2019-10-30] MEDS: ALLOPURINOL 300 MG TABLET PO SCH (08:10)
[2019-10-30] MEDS: LIDOCAINE 5% PATCH TD SCH (08:10)
[2019-10-30] MEDS: ACETAMINOPHEN 325 MG TABLET PO PRN ×2 (08:41→15:04)
[2019-10-30] MEDS: ENOXAPARIN SODIUM 40 MG/0.4 ML DISP.SYRIN SQ SCH (08:46)
--- NOTE | 2019-10-30 09:36 | NUR ---
Received pt. in bed A/OX4 verbally responsive and able to make his needs known. All due medications administered as ordered. In no acute distress. On RA and tolerating well. RT hip dressing C/D/I. Tolerated diet well. Safety measures in place. Call light and all frequently used items in place. Will continue to monitor accordingly.
--- NOTE | 2019-10-30 14:29 | NUR ---
INTERDISCIPLINARY TEAM CONFERENCE
[2019-10-30 15:51] VITALS: BP 134/63
[2019-10-30] MEDS: DOCUSATE SODIUM 100 MG CAPSULE PO PRN (17:04)
--- NOTE | 2019-10-30 18:20 | NUR ---
EOS: No significant changes. All due medications given as ordered. Skin care rendered. Safety measures in place. Call light and all frequently used items within pt. reach. Will endorse to oncoming shift accordingly.
--- NOTE | 2019-10-30 20:00 | NUR ---
Received patient. alert , and oriented X4. call light within reach. Patient is in no acute distress. on RA. Right hip dressing intact and dry. safety measures in place. All frequently used items in place. will continue to monitor.
[2019-10-30 20:35] VITALS: BP 153/59
[2019-10-30] MEDS: ATORVASTATIN 40 MG TABLET PO SCH (20:38)
[2019-10-30] MEDS: CELECOXIB 200 MG CAPSULE PO PRN (20:38)
[2019-10-31] MEDS: ACETAMINOPHEN 325 MG TABLET PO PRN ×5 (02:27→21:06)
[2019-10-31 05:57] VITALS: BP 153/69
--- NOTE | 2019-10-31 06:39 | NUR ---
EOS report: Patient was stable during the shift. No signs of acute distress or SOB. Complained of pain in his right hip. Tylenol 3 administered and effective. Pain assessed and reassessed after pain medication. All due medication were given as ordered and well tolerated. All needs attended promptly. Dressing changed, green serous discharge noted. stella in place. Physical assessment done. Fall prevention observed. Safety measures maintained. Bed in low and lock position, alarm on, side rails up x2 for safety. Call light and frequently used items within reach. Continue to monitor and will endorse to the oncoming nurse accordingly
--- NOTE | 2019-10-31 07:30 | NUR ---
PT. STILL ASLEEP DURING NURSING ROUNDS, NOT IN RESPIRATORY DISTRESS.
[2019-10-31 08:00] VITALS: BP 127/67
[2019-10-31] MEDS: RAMIPRIL 5 MG CAPSULE PO SCH (09:52)
[2019-10-31] MEDS: ALLOPURINOL 300 MG TABLET PO SCH (09:52)
[2019-10-31] MEDS: LIDOCAINE 5% PATCH TD SCH (09:53)
[2019-10-31] MEDS: CELECOXIB 200 MG CAPSULE PO PRN (09:54)
[2019-10-31] MEDS: ENOXAPARIN SODIUM 40 MG/0.4 ML DISP.SYRIN SQ SCH (10:09)
--- NOTE | 2019-10-31 12:00 | NUR ---
PHYSICAL THERAPIST ASSIGNED TO PT REPORTED THAT BP= 70/59 WHILE SITTING, PLACED HIM BACK TO BED. WILL MONITOR.
--- NOTE | 2019-10-31 12:30 | NUR ---
PT'S BP CHECKED WITH RESULT OF 102/54, HR 53-58/MINUTE, O2 SAT =99% RA. NO DIZZINESS NOR LIGHT HEADEDNESS.
--- NOTE | 2019-10-31 13:30 | NUR ---
PHYSICAL THERAPIST AGAIN CHECKED BP BEFORE TREATMENT WITH RESULT OF 84/ 48 ON HIGH FOWLERS POSITION IN BED, AND HE SAID PT FEELS DIZZY. TREATMENT NOT DONE THIS AFTERNOON. WILL RELAY VS TO MD. BOTTLE ASSEMBLER MADE AWARE.
[2019-10-31] MEDS: DOCUSATE SODIUM 100 MG CAPSULE PO PRN (14:19)
[2019-10-31 16:00] VITALS: BP 138/52
--- NOTE | 2019-10-31 17:10 | NUR ---
JESSE DELA CRUZ STRAIN TECHNICIAN CAME AND MADE AWARE OF THE LOW BP WHEN PT'S SITTING UP , HE SAID IT'S LUCÍA. ALSO MADE AWARE OF THE CBC RESULT ON OCTOBER 24 WHICH HAS LOW H/H. HE SAID HE WILL CHECK THE LAB RESULT AND WILL ORDER CBC AND BMP FOR TOMORROW. PT MADE AWARE OF THE STRAIN TECHNICIAN'S ORDER.
[2019-10-31] MEDS: ATORVASTATIN 40 MG TABLET PO SCH (20:51)
[2019-10-31 21:07] VITALS: BP 141/55
--- NOTE | 2019-10-31 21:59 | NUR ---
In bed watching TV upon initial rounds. AAox3-4. Needs attended, VSS. Denies any pain nor any discomfort. Will monitor patient. Fall precautions maintained. Siderails up for safety.
[2019-11-01] MEDS: ACETAMINOPHEN/CODEINE 300-30 MG TABLET PO PRN ×2 (02:06→22:36)
[2019-11-01 05:47] VITALS: BP 137/45
--- NOTE | 2019-11-01 06:45 | NUR ---
sleeping at short intervals. aaox4 needs attended. no acute distress noted. Xray right wrist and right hip done this am. Will checked for results. Medicated with Tylenol w/ codeine. Voiding in urinal. Will monitor patient. Right dressing intact, but the middle incision has some sanguinous drainage. VSS.
[2019-11-01 07:33] LABS: BASOPHILS % (AUTO) 0.6 % (0.0-2.0); EOSINOPHILS # (AUTO) 0.2 K/uL (0.0-0.7); EOSINOPHILS % (AUTO) 4.2 % (0.0-7.0); HEMATOCRIT 25.9 % (36.7-47.1); HEMOGLOBIN 8.9 g/dL (12.5-16.3); LYMPHOCYTES # (AUTO) 1.1 K/uL (20.0-40.0); LYMPHOCYTES % (AUTO) 20.5 % (20.5-51.5); MEAN CORPUSCULAR HEMOGLOBIN 33.7 uug (23.8-33.4); MEAN CORPUSCULAR HGB CONC 35 g/dL (32.5-36.3); MEAN CORPUSCULAR VOLUME 97.8 fL (73.0-96.2); MONOCYTES # (AUTO) 0.6 K/uL (2.0-10.0); MONOCYTES % (AUTO) 10.2 % (0.0-11.0); NEUTROPHILS # (AUTO) 3.5 K/uL (1.8-8.9); NEUTROPHILS % (AUTO) 64.5 % (38.5-71.5); PLATELET COUNT (AUTO) 203 K/uL (152-348); RED BLOOD CELL COUNT(AUTO) 2.65 MIL/uL (4.06-5.63); WHITE BLOOD COUNT (AUTO) 5.5 K/uL (3.6-10.2)
[2019-11-01 07:54] LABS: CARBON DIOXIDE 28 mmol/L (21-32); CHLORIDE 103 mmol/L (98-107); CREATININE 1.4 mg/dL (0.6-1.3); GLUCOSE 94 mg/dL (74-106); MAGNESIUM 1.8 mg/dL (1.8-2.4); PHOSPHOROUS 3.3 mg/dL (2.5-4.9); POTASSIUM 4.2 mmol/L (3.5-5.1); UREA NITROGEN, BLOOD 23 mg/dL (7-18)
[2019-11-01 08:30] VITALS: BP 145/60
[2019-11-01] MEDS: ALLOPURINOL 300 MG TABLET PO SCH (08:37)
[2019-11-01] MEDS: ACETAMINOPHEN 325 MG TABLET PO PRN (08:37)
[2019-11-01] MEDS: RAMIPRIL 5 MG CAPSULE PO SCH (08:38)
[2019-11-01] MEDS: CELECOXIB 200 MG CAPSULE PO PRN (08:40)
[2019-11-01] MEDS: LIDOCAINE 5% PATCH TD SCH (08:42)
[2019-11-01] MEDS: ENOXAPARIN SODIUM 40 MG/0.4 ML DISP.SYRIN SQ SCH (08:49)
--- NOTE | 2019-11-01 15:32 | NUR ---
Pt received, assessed, no acute distress. Plan for today discussed, including Pt teaching regarding lab results. Xray CD received, packed started for tomorrows appointment. Pt compliant with routine medication administration and cooperative with therapy as offered. Pt reports pain relief effective from Tylenol. Ic packs applied. Requests dressings to be changed following last therapy session. VSS. All comfort and safety measures implemented. Pt assisted to use the urinal for voiding of clear, yellow urine. Call light and personal items all placed within reach. Will continue to monitor.
[2019-11-01 16:47] VITALS: BP 137/52
--- NOTE | 2019-11-01 19:36 | NUR ---
Surgical incision site drainage noted. Dressing change and photos taken, top hip incision no active bleeding but evidence of red drainage present, green undertone drainage present to middle incision, third reinforced. Incisions well approximated and stella intact. Endorsed to shift engineer.
[2019-11-01] MEDS: ATORVASTATIN 40 MG TABLET PO SCH (20:03)
[2019-11-01 20:10] VITALS: BP 146/49
--- NOTE | 2019-11-01 21:30 | NUR ---
Received pt resting in bed and watching tv. AAO x4. No acute distress noted. Denies pain/ discomfort at this time. Due med given as ordered. Safety measures maintained. Call light and personal items within reach. Will continue to monitor.
[2019-11-02] MEDS: ACETAMINOPHEN 325 MG TABLET PO PRN ×3 (02:24→16:12)
[2019-11-02] MEDS: ACETAMINOPHEN/CODEINE 300-30 MG TABLET PO PRN ×2 (04:55→22:20)
[2019-11-02 05:00] VITALS: BP 127/58
--- NOTE | 2019-11-02 05:03 | NUR ---
Surgical site cleaned and dressing changed. Red drainage noted on top hip incision. No drainage noted on middle incision. Redness noted and no drainage on lower incision site. Pt will have follow up appointment today with surgeon. Continue to monitor.
[2019-11-02 08:00] VITALS: BP 113/67
[2019-11-02] MEDS: ALLOPURINOL 300 MG TABLET PO SCH (08:44)
[2019-11-02] MEDS: LIDOCAINE 5% PATCH TD SCH (08:44)
[2019-11-02] MEDS: CELECOXIB 200 MG CAPSULE PO PRN (08:44)
[2019-11-02] MEDS: RAMIPRIL 5 MG CAPSULE PO SCH (08:50)
[2019-11-02] MEDS: ENOXAPARIN SODIUM 40 MG/0.4 ML DISP.SYRIN SQ SCH (08:59)
[2019-11-02 16:24] VITALS: BP 124/61
--- NOTE | 2019-11-02 18:42 | NUR ---
Pt received, assessed, AAOx4. Plan of care discussed. Pt compliant with routine medications, Tylenol PRN continues to be effective for pain management. Cooperative with therapies as offered. VSS. Dry dressings intact prior to follow up appointment with surgeon. Xray CD sent with Pt to appointment. All comfort and safety needs met. Call light and personal items placed within reach. Will continue to monitor for safety.
--- NOTE | 2019-11-02 18:50 | NUR ---
Pt returned safely from follow up appointment with surgeon. Duarte removed from all 3 right hip surgical sites. Photos taken upon return. Steri trips placed at this time. states: showers permitted, no soaking surgical sites, continue PT and OT WBAT, continue anticoagulants and analgesics as ordered, take and bring pelvis and 2 view Right hip Xrays to f/u visit in 1 month. Additional f/u appointment scheduled for 12/07/2019 at 1330. Pt teaching provided. Repositioning for comfort and ice pack applied. Call light placed within reach. Will continue to monitor and endorse to oncoming overnight stocker.
[2019-11-02] MEDS: ATORVASTATIN 40 MG TABLET PO SCH (20:35)
[2019-11-02 20:44] VITALS: BP 124/62
[2019-11-02] MEDS: DOCUSATE SODIUM 100 MG CAPSULE PO PRN (22:21)
[2019-11-03] VITALS (7 sets, daily range): BP systolic 73–130; BP diastolic 44–68
[2019-11-03] MEDS: ACETAMINOPHEN/CODEINE 300-30 MG TABLET PO PRN (04:21)
--- NOTE | 2019-11-03 06:25 | NUR ---
Patient slept intermittently. c/o R hip pain, PRN Tylenol #3 given x 2 this shift. Steri-strips on R hip changed, noted w/ minimal bleeding on the mid part of incision. No s/sx of infection noted. Turned and repositioned for comfort. All needs attended. Will endorse accordingly
[2019-11-03] MEDS: LIDOCAINE 5% PATCH TD SCH (08:17)
[2019-11-03] MEDS: CELECOXIB 200 MG CAPSULE PO PRN (08:17)
[2019-11-03] MEDS: ACETAMINOPHEN 325 MG TABLET PO PRN ×4 (08:17→23:53)
[2019-11-03] MEDS: ALLOPURINOL 300 MG TABLET PO SCH (08:17)
[2019-11-03] MEDS: RAMIPRIL 5 MG CAPSULE PO SCH (08:18)
[2019-11-03] MEDS: ENOXAPARIN SODIUM 40 MG/0.4 ML DISP.SYRIN SQ SCH (08:25)
--- NOTE | 2019-11-03 15:45 | NUR ---
Pt received, assessed, AAOx3. Pt able to make needs known. Tylenol administered PRN for pain management, reported effective. Pt compliant with medication administration and therapies as offered. Pt reported dizziness sitting in wheelchair following first therapy. Pt returned safely to bed. Bed in locked and lowest position with side rails up x2, alarm on. Steri strips to right hip in tact top incision with slight red drainage noted. Pt seen by FUNERAL SERVICE LICENSEE, new orders received. Orthostatic hypotension BP taken, laying down: 105/60, 72, sittin/44, 86, standin/44, 89. FUNERAL SERVICE LICENSEE aware, will follow up accordingly. All comfort and safety measures implemented. Call light placed within reach, will continue to monitor.
[2019-11-03] MEDS ORDERED: IV NORMAL SALINE 500 ML IV ONE (19:30)
[2019-11-03] MEDS: ATORVASTATIN 40 MG TABLET PO SCH (20:21)
[2019-11-04] VITALS (7 sets, daily range): BP systolic 85–143; BP diastolic 53–75
--- NOTE | 2019-11-04 04:17 | NUR ---
awake upon initial rounds aaox4 patient having low BP since dayshift which storage battery charger notified and also PATIENT ASSISTANT Meme aware of patient's being hypotensive. NSS 500ml bolus given as ordered via left arm saline locked gauge #20. Will monitor patient's BP via orthostatic HTN. BP lying 110/68, sitting 117/82 standing 91/49 Needs attended. Denies any pain at this time. Patient complained of feeling dizzy when OOB. Voiding in urinal.Fall precautions maintained.
[2019-11-04 07:23] LABS: BASOPHILS % (AUTO) 0.7 % (0.0-2.0); EOSINOPHILS # (AUTO) 0.2 K/uL (0.0-0.7); HEMATOCRIT 28.4 % (36.7-47.1); HEMOGLOBIN 9.8 g/dL (12.5-16.3); LYMPHOCYTES # (AUTO) 1.3 K/uL (20.0-40.0); LYMPHOCYTES % (AUTO) 24.3 % (20.5-51.5); MEAN CORPUSCULAR HEMOGLOBIN 33.9 uug (23.8-33.4); MEAN CORPUSCULAR HGB CONC 35 g/dL (32.5-36.3); MEAN CORPUSCULAR VOLUME 97.8 fL (73.0-96.2); MONOCYTES # (AUTO) 0.5 K/uL (2.0-10.0); MONOCYTES % (AUTO) 10.6 % (0.0-11.0); NEUTROPHILS # (AUTO) 3.1 K/uL (1.8-8.9); NEUTROPHILS % (AUTO) 60.4 % (38.5-71.5); PLATELET COUNT (AUTO) 209 K/uL (152-348); RED BLOOD CELL COUNT(AUTO) 2.91 MIL/uL (4.06-5.63); WHITE BLOOD COUNT (AUTO) 5.2 K/uL (3.6-10.2)
[2019-11-04 07:50] LABS: CARBON DIOXIDE 26 mmol/L (21-32); CHLORIDE 103 mmol/L (98-107); CREATININE 1.5 mg/dL (0.6-1.3); GLUCOSE 94 mg/dL (74-106); MAGNESIUM 1.7 mg/dL (1.8-2.4); PHOSPHOROUS 3.5 mg/dL (2.5-4.9); POTASSIUM 4.3 mmol/L (3.5-5.1); UREA NITROGEN, BLOOD 20 mg/dL (7-18)
[2019-11-04] MEDS: ACETAMINOPHEN 325 MG TABLET PO PRN ×2 (08:09→19:01)
[2019-11-04] MEDS: LIDOCAINE 5% PATCH TD SCH (08:09)
[2019-11-04] MEDS: RAMIPRIL 5 MG CAPSULE PO SCH (08:50)
[2019-11-04] MEDS ORDERED: IV NS 1000 ML 1,000 ML IV ONE (09:00)
[2019-11-04] MEDS: ALLOPURINOL 300 MG TABLET PO SCH (09:01)
--- NOTE | 2019-11-04 09:06 | NUR ---
Patient reported dizziness with OT, orthostatics done lying 126/73 68, sitting 116/71 86, standing 85/53 93. Reported to ALFONSO Valentine, held ramipril AM dose, 1L bolus initiated. Will recheck VS once bolus complete. Will continue to monitor.
[2019-11-04] MEDS: ENOXAPARIN SODIUM 40 MG/0.4 ML DISP.SYRIN SQ SCH (09:18)
[2019-11-04] MEDS: IV NS 1000 ML 1,000 ML IV PRN ×2 (11:04→23:54)
[2019-11-04] MEDS: CELECOXIB 200 MG CAPSULE PO PRN (11:25)
[2019-11-04 11:55] LABS: *BILIRUBIN,URIN NEGATIVE (NEGATIVE); *BLOOD, URINE NEGATIVE (NEGATIVE); *CLARITY,URINE CLEAR (CLEAR); *COLOR,URINE YELLOW (YELLOW); *KETONES,URINE NEGATIVE (NEGATIVE); LEUKOCYTE ESTERASE ,URINE NEGATIVE (NEGATIVE); NITRITE, URINE NEGATIVE (NEGATIVE); UGLUCOSE NEGATIVE (NEGATIVE)
[2019-11-04] MEDS ORDERED: MAGNESIUM OXIDE 400 MG TABLET PO ONE (12:00)
--- NOTE | 2019-11-04 17:39 | NUR ---
Fall precautions in place. Right short arm cast in place, circulation and sensation intact. Right hip steristrips in place, incision intact no drainage present. Patient complaint with care plan, therapies and medication. 1L bolus given today, refer to situational note. Patient now on NS @75ml/hr. Urine collected for urinalysis, sent to lab, refer to results. PRN celebrex given for pain management.
--- NOTE | 2019-11-04 19:48 | NUR ---
AAOx4 Attended to needs. Right short arm cast intact, good capillary refill. Able to move fingers. Right hip incision with steristrips REGISTERED RADIOLOGIC TECHNOLOGIST. No drainage noted. Pain meds give as needed. Patient on continous IVF of NSS @ 75cc/hr via left arm INT. Voiding well in urinal, but have some periods of incontinence as well. Kept clean and dry. PM care done. Fall precautions maintained. Call torres within reach. Siderails up for safety. Will monitor patient. BP 115/56.
[2019-11-04] MEDS: ATORVASTATIN 40 MG TABLET PO SCH (20:13)
[2019-11-05 04:59] VITALS: BP 140/77
--- NOTE | 2019-11-05 06:45 | NUR ---
Slept well most of the shift. On continous IVF of NSS @75cc/hr via left arm heplock. Voiding well but with periods of incontinence @ times. No acute distress noted. BP 126/54 HR 70 No complaints presented during shift. Will monitor patient.
[2019-11-05 07:27] LABS: BASOPHILS % (AUTO) 0.6 % (0.0-2.0); EOSINOPHILS # (AUTO) 0.3 K/uL (0.0-0.7); HEMATOCRIT 28.3 % (36.7-47.1); HEMOGLOBIN 9.6 g/dL (12.5-16.3); LYMPHOCYTES # (AUTO) 1.2 K/uL (20.0-40.0); LYMPHOCYTES % (AUTO) 23.8 % (20.5-51.5); MEAN CORPUSCULAR HEMOGLOBIN 33.8 uug (23.8-33.4); MEAN CORPUSCULAR HGB CONC 34 g/dL (32.5-36.3); MEAN CORPUSCULAR VOLUME 99.1 fL (73.0-96.2); MONOCYTES # (AUTO) 0.5 K/uL (2.0-10.0); NEUTROPHILS # (AUTO) 3.1 K/uL (1.8-8.9); NEUTROPHILS % (AUTO) 60.6 % (38.5-71.5); PLATELET COUNT (AUTO) 200 K/uL (152-348); RED BLOOD CELL COUNT(AUTO) 2.86 MIL/uL (4.06-5.63); WHITE BLOOD COUNT (AUTO) 5.1 K/uL (3.6-10.2)
[2019-11-05 07:38] VITALS: BP 151/87
[2019-11-05 07:40] LABS: CREATININE 1.3 mg/dL (0.6-1.3); MAGNESIUM 1.7 mg/dL (1.8-2.4); PHOSPHOROUS 3.1 mg/dL (2.5-4.9); POTASSIUM 4.3 mmol/L (3.5-5.1)
[2019-11-05] MEDS: LIDOCAINE 5% PATCH TD SCH (08:17)
[2019-11-05] MEDS: ALLOPURINOL 300 MG TABLET PO SCH (08:17)
[2019-11-05] MEDS: CELECOXIB 200 MG CAPSULE PO PRN (08:17)
[2019-11-05] MEDS: ACETAMINOPHEN 325 MG TABLET PO PRN ×2 (08:17→14:37)
[2019-11-05] MEDS: ENOXAPARIN SODIUM 40 MG/0.4 ML DISP.SYRIN SQ SCH (08:24)
[2019-11-05 09:32] VITALS: BP 137/72
[2019-11-05] MEDS ORDERED: MAGNESIUM OXIDE 400 MG TABLET PO ONE (11:15)
[2019-11-05 14:43] VITALS: BP 98/64
--- NOTE | 2019-11-05 18:26 | NUR ---
Pt received, assessed, no acute distress, pain, or SOB. VSS. Plan of care discussed including, anticipated D/C tomorrow. Pt concerned with morning BP elevation 151/87, 73hr. Pt refused new bag of IV NS. BP reassessed BP 137/72, 80hr. Pt seen by DOCTOR OF DENTAL MEDICINE, new orders received. Pt compliant with routine medications and cooperative with therapy as offered. Tylenol administered per PRN orders. Pt assisted to use urinal. Bed in locked and lowest position with side rails up x2, alarm on. Repositioned for comfort. All safety needs met. Call light and personal items placed within reach, will continue to monitor.
[2019-11-05 20:12] VITALS: BP 137/68
[2019-11-05] MEDS: ATORVASTATIN 40 MG TABLET PO SCH (20:17)
[2019-11-05] MEDS: ACETAMINOPHEN/CODEINE 300-30 MG TABLET PO PRN (20:20)
--- NOTE | 2019-11-05 21:08 | NUR ---
awake alert and oriented x4 Dozing on and off. VSS Needs attended. complained of pain right hip. Tylenol #3 given as ordered. Will monitor for relief. Voiding well in the urinal.Kept comfortable. Compliant with care. Possible d/c in am.
[2019-11-06 04:55] VITALS: BP 143/66
--- NOTE | 2019-11-06 06:00 | NUR ---
End of shift notes: Slept well. Needs attended. Voided well. Kept comfortable. VSS. BP 143/66 HR 66. Possible discharge today. Fall precautions maintained. No complaints of pain nor any discomfort. Will monitor patient.
[2019-11-06 08:00] VITALS: BP 146/52
[2019-11-06] MEDS ORDERED: RAMIPRIL 5 MG CAPSULE PO SCH (09:00)
[2019-11-06] MEDS: ALLOPURINOL 300 MG TABLET PO SCH (09:01)
[2019-11-06] MEDS: CELECOXIB 200 MG CAPSULE PO PRN (09:01)
[2019-11-06] MEDS: ACETAMINOPHEN 325 MG TABLET PO PRN (09:07)
[2019-11-06] MEDS: ENOXAPARIN SODIUM 40 MG/0.4 ML DISP.SYRIN SQ SCH (09:07)
[2019-11-06] MEDS: LIDOCAINE 5% PATCH TD SCH (09:07)
--- NOTE | 2019-11-06 10:15 | NUR ---
Pt A/O x4. No distress noted or reported. Pt in GYM for PT. Pt denied any pain or discomfort at this time. All morning meds administered per MD orders. All safety precautions in place. Pt to be discharged today. Monitoring continued.
[2019-11-06 11:19] LABS: CARBON DIOXIDE 28 mmol/L (21-32); CHLORIDE 103 mmol/L (98-107); CREATININE 1.6 mg/dL (0.6-1.3); GLUCOSE 94 mg/dL (74-106); POTASSIUM 4.2 mmol/L (3.5-5.1); UREA NITROGEN, BLOOD 19 mg/dL (7-18)
--- NOTE | 2019-11-06 15:45 | NUR ---
Pt noted to have positive orthostatic VS. Supine EJ=518/61 mmHG; Sitting VF=461/47 mmHG; Standing IR=175/52 mmHG. Pt also stated that he felt a little dizzy upon standing. Educated pt on importance of changing positions slowly to prevent dizziness and falls. Pt verbalized understanding and correctly demonstrated slow position changes. Notified Jacquie Valentine NP re: pt's positive orthostatic VS. 500 ml NS bolus ordered and reinforcement of slow position change ordered.
[2019-11-06 16:00] VITALS: BP 149/61
[2019-11-06] MEDS ORDERED: IV NORMAL SALINE 500 ML IV ONE (16:00)
--- NOTE | 2019-11-06 16:00 | NUR ---
1600: 500 ml NS bolus administered per STORAGE ARCHITECT order. Reinforced importance of slow position changes to pt. Pt verbalized understanding and again demonstrated correct position changing slowly. Awaiting ambulance arrival for discharge.
--- NOTE | 2019-11-06 17:00 | NUR ---
1710: SBAR report given to EMT from [facility]. Discharge instructions given to pt. Pt verbalized understanding. Pt safety maintained. All discharge paperwork given to pt. Prescriptions given to pt. Pt safely discharged.
== END 2019-11-06 17:00 | disposition home health service (06) | DRG 559 ==
PROVIDERS: ADMIT Physical Medicine & Rehabilitation Pain Medicine; ATTEND Physical Medicine & Rehabilitation Pain Medicine
DX: S72.141D Displaced intertrochanteric fracture of right femur, subsequent encounter for closed fracture with routine healing (principal); N17.0 Acute kidney failure with tubular necrosis; S62.001D Unspecified fracture of navicular [scaphoid] bone of right wrist, subsequent encounter for fracture with routine healing; W18.30XD Fall on same level, unspecified, subsequent encounter; D64.9 Anemia, unspecified; E78.5 Hyperlipidemia, unspecified; I10 Essential (primary) hypertension; Q63.1 Lobulated, fused and horseshoe kidney; Z87.442 Personal history of urinary calculi; Z85.46 Personal history of malignant neoplasm of prostate; E83.42 Hypomagnesemia; I45.4 Nonspecific intraventricular block; R19.7 Diarrhea, unspecified; R26.9 Unspecified abnormalities of gait and mobility; R42 Dizziness and giddiness
CPT/HCPCS: 36415; 73110; 73502; 83735; 83970; 84100; 85025; 87046; 87086; 89055; A4663; G0515; J1650; J7030; J7040